=== PATIENT | female | born 1995 | race Caucasian/White ===

== ENCOUNTER 2018-01-02 14:10 | Emergency (ER) | payer MEDICAID, OTHER ==
[~2018-01-02] VITALS: Ht 162.6 cm; Wt 83.0 kg
[2018-01-02 16:06] LABS: BASOPHILS # (AUTO) 0.02 x10^3/uL (0-0.1); BASOPHILS % (AUTO) 0 % (0-1); EOSINOPHILS # (AUTO) 0.19 x10^3/uL (0-0.4); EOSINOPHILS % (AUTO) 1 % (1-7); LYMPHOCYTES # (AUTO) 2.22 x10^3/uL (1-3.4); LYMPHOCYTES % (AUTO) 17 % (22-44); MD NO; MEAN CORPUSCULAR HGB CONC 34.2 g/dL (32.4-35.8); MEAN CORPUSCULAR VOLUME 87.6 fL (80-100); MEAN PLATELET VOLUME 7.9 fL (7.4-10.4); MONOCYTES # (AUTO) 0.67 x10^3/uL (0.2-0.8); MONOCYTES % (AUTO) 5 % (2-9); NEUTROPHILS # (AUTO) 10.07 x10^3/uL (1.8-6.8); NEUTROPHILS % (AUTO) 77 % (42-75); PLATELET COUNT 362 x10^3/uL (130-400); RED CELL DISTRIBUTION WIDTH 12.3 % (9.6-15.2)
[2018-01-02 16:18] LABS: ALBUMIN 3.6 g/dL (3.4-5.0); ANION GAP 9 mmol/L (5-15); CALCIUM 8.5 mg/dL (8.5-10.1); CHLORIDE 108 mmol/L (98-107)
[2018-01-02 16:21] LABS: ALANINE AMINOTRANSFERASE 26 U/L (12-78); ALKALINE PHOSPHATASE 112 U/L (45-117); BILIRUBIN,TOTAL 0.2 mg/dL (0.2-1.0); CREATININE 0.79 mg/dL (0.55-1.02); TOTAL PROTEIN 7.7 g/dL (6.4-8.2)
[2018-01-02 16:22] LABS: HCG UR SG 1.028 (1.003-1.030)
[2018-01-02 16:23] LABS: MICROSCOPIC INDICATED
[2018-01-02 16:52] LABS: CULTURE INDICATED? YES
[2018-01-02 17:04] VITALS: BP 109/55
== END 2018-01-02 17:43 | disposition home or self-care (01) ==
LOC: ED 17:37
DX: K60.0 Acute anal fissure (principal); K62.5 Hemorrhage of anus and rectum
CPT/HCPCS: 36415; 76700; 80053; 81001; 81025; 83690; 85025; 87086; 99285

== ENCOUNTER 2018-02-16 03:36 | Emergency (ER) | payer MEDICAID, OTHER ==
[~2018-02-16] VITALS: Ht 162.6 cm; Wt 84.0 kg
[2018-02-16 03:38] VITALS: BP 120/79
[2018-02-16] MEDS ORDERED: MELO15TA24 PO (03:50)
[2018-02-16] MEDS ORDERED: ACYCLOVIR 200 MG CAPSULE PO ONE (04:30)
== END 2018-02-16 05:02 | disposition home or self-care (01) ==
LOC: ED 04:22
DX: A60.04 Herpesviral vulvovaginitis (principal); A60.09 Herpesviral infection of other urogenital tract
CPT/HCPCS: 87255; 99283

== ENCOUNTER 2018-08-27 06:37 | Emergency (ER) | payer MEDICAID, OTHER ==
[~2018-08-27] VITALS: Ht 162.6 cm; Wt 88.2 kg
[~2018-08-27 06:37] MED LIST: MELO15TA24 PO
--- NOTE | 2018-08-27 06:50 | NUR ---
PT HERE FOR CENTRAL ABD PAIN WITH N/V/D SINCE YESTERDAY. PT TEARFUL. PT GIVEN URINE CUP FOR UA. MD AT BEDSIDE.
--- NOTE | 2018-08-27 06:54 | NUR ---
REPORT TO ABDULAZIZ BOWSER
--- NOTE | 2018-08-27 06:55 | NUR ---
received report from Ginger. pt upright on gurney awake with c/o abd pain, seen by ERP, tearful but responds approp to staff, comfort measures provided, call light within reach.
[2018-08-27] MEDS ORDERED: SODIUM CHLORIDE 0.9% 1,000ML IVBOLUS ONE (07:00)
[2018-08-27] MEDS ORDERED: ONDANSETRON 2MG/ML, 2ML IVPush ONE (07:00)
[2018-08-27] MEDS ORDERED: MORPHINE SULFATE 4 MG/ML, 1ML IVPush PRN (07:00)
[2018-08-27] MEDS ORDERED: SODIUM CHLORIDE FLUSH 10ML SYR IVF ONE (07:00)
[2018-08-27] MEDS ORDERED: MORPHINE SULFATE 4 MG/ML, 1ML ONE (07:12)
[2018-08-27] MEDS ORDERED: ONDANSETRON 2MG/ML, 2ML ONE (07:12)
[2018-08-27 07:15] LABS: BASOPHILS # (AUTO) 0.02 x10^3/uL (0-0.1); BASOPHILS % (AUTO) 0 % (0-1); EOSINOPHILS # (AUTO) 0.04 x10^3/uL (0-0.4); EOSINOPHILS % (AUTO) 0 % (1-7); LYMPHOCYTES # (AUTO) 1.63 x10^3/uL (1-3.4); LYMPHOCYTES % (AUTO) 16 % (22-44); MD NO; MEAN CORPUSCULAR HEMOGLOBIN 29.7 pg (27.0-34.8); MEAN CORPUSCULAR HGB CONC 33.5 g/dL (32.4-35.8); MEAN CORPUSCULAR VOLUME 88.7 fL (80-100); MEAN PLATELET VOLUME 7.9 fL (7.4-10.4); MONOCYTES # (AUTO) 0.47 x10^3/uL (0.2-0.8); MONOCYTES % (AUTO) 5 % (2-9); NEUTROPHILS # (AUTO) 8.09 x10^3/uL (1.8-6.8); NEUTROPHILS % (AUTO) 79 % (42-75); PLATELET COUNT 369 x10^3/uL (130-400); RED BLOOD COUNT 5.01 x10^6/uL (3.82-5.3)
[2018-08-27 07:28] LABS: ALANINE AMINOTRANSFERASE 32 U/L (12-78); ANION GAP 8 mmol/L (5-15); CALCIUM 8.4 mg/dL (8.5-10.1); CHLORIDE 109 mmol/L (98-107); CREATININE 0.76 mg/dL (0.55-1.02)
[2018-08-27 07:29] LABS: MICROSCOPIC INDICATED
[2018-08-27 07:33] LABS: ALKALINE PHOSPHATASE 113 U/L (45-117); BILIRUBIN,TOTAL 0.3 mg/dL (0.2-1.0)
[2018-08-27 07:42] LABS: CULTURE INDICATED? YES
--- NOTE | 2018-08-27 08:05 | NUR ---
pt remains upright on gurney awake & more comfortable after pain med, responds approp to staff, NAD, comfort measures provided, call light within reach.
[2018-08-27 08:07] VITALS: BP 111/61
--- NOTE | 2018-08-27 09:20 | NUR ---
Patient given discharge instructions and Rx, they have confirmed that they understand the instructions. Patient ambulatory with steady gait.
== END 2018-08-27 09:21 | disposition home or self-care (01) ==
LOC: ED 08:18
DX: R10.84 Generalized abdominal pain (principal); R11.2 Nausea with vomiting, unspecified
CPT/HCPCS: 36415; 80053; 81001; 83605; 83690; 84703; 85025; 87086; 96361; 96374; 96375; 99283; J2270; J2405; J7030